=== PATIENT | male | born 1965 | race Caucasian/White ===

== ENCOUNTER 2023-05-22 13:40 | Outpatient (OUT) | payer MEDICARE, SELFPAY | END 2023-05-22 13:41 | disposition home or self-care (01) | LOC: PM 13:41 | PROVIDERS: PCP Internal Medicine; Visit Provider Anesthesiology Pain Medicine | DX: M54.50 Low back pain, unspecified (principal); M79.606 Pain in leg, unspecified | CPT/HCPCS: G0463 ==